=== PATIENT | female | born 1955 | race Caucasian/White ===

== ENCOUNTER 2017-02-12 08:57 | Emergency (ER) | payer OTHER ==
[~2017-02-12] VITALS: Ht 162.6 cm; Wt 80.0 kg
[~2017-02-12 08:57] MED LIST: GABA100C; LISI2.5T89; PHEN-434; SERT25TA; SITA1TAB8
[2017-02-12 09:36] LABS: BASOPHILS % 0.9 % (0.0-2.0); EOSINOPHILS % 1.9 % (0.0-5.0); HEMATOCRIT. 37.9 % (36.0-48.0); HEMOGLOBIN. 12.9 g/dL (12.0-16.0); MEAN CORPUSCULAR HEMOGLOBIN 30.3 pg (28.0-32.0); MEAN CORPUSCULAR VOLUME 88.8 fL (81.0-99.0); MEAN PLATELET VOLUME 7.3 fl (7.4-10.4); MONOCYTES % 9.9 % (2.0-8.0); NEUTROPHILS % 59.3 % (40.0-76.0); PLATELET 284 x1000/uL (130-400); RED BLOOD CELL COUNT 4.27 mill/uL (4.2-5.4); RED CELL DISTRIBUTION WIDTH 13.5 % (11.6-14.6)
[2017-02-12 09:47] LABS: CARBON DIOXIDE 27 mEq/L (21-32); CHLORIDE 101 mEq/L (98-107); ETHANOL BLOOD < 10 mg/dL
[2017-02-12 09:51] LABS: PHENYTOIN 3.6 ug/mL (10-20); TROPONIN I < 0.02 ng/mL (0.00-0.04)
[2017-02-12 10:12] LABS: CLARITY URINE CLEAR (CLEAR); COLOR URINE YELLOW (YELLOW); GLUCOSE URINE 3+ (NEGATIVE); KETONES URINE NEGATIVE (NEGATIVE); LEUKOCYTE ESTERASE URINE NEGATIVE (NEGATIVE); NITRITE URINE NEGATIVE (NEGATIVE); OCCULT BLOOD URINE TRACE (NEGATIVE); PROTEIN URINE 2+ (NEGATIVE); SPECIFIC GRAVITY URINE 1.018 (1.005-1.030); UROBILINOGEN URINE 0.2 E.U./dL (0.2-1.0)
[2017-02-12 10:57] LABS: *AMPHETAMINES SCREEN URINE NEGATIVE (NEGATIVE); *BARBITURATES SCREEN URINE NEGATIVE (NEGATIVE); *BENZODIAZEPINES SCREEN URINE NEGATIVE (NEGATIVE); *COCAINE SCREEN URINE NEGATIVE (NEGATIVE); CANNABINOID URINE SCREEN NEGATIVE (NEGATIVE); METHADONE URINE SCREEN NEGATIVE (NEGATIVE); OPIATES URINE SCREEN NEGATIVE (NEGATIVE); PHENCYCLIDINE URINE SCREEN NEGATIVE (NEGATIVE)
[2017-02-12] MEDS ORDERED: LORAZEPAM 2MG/ML CPJ ONE (11:05)
[2017-02-12] MEDS ORDERED: LORAZEPAM 2MG/ML CPJ IV ONE (11:15)
[2017-02-12] MEDS ORDERED: PHENYTOIN SODIUM 1,000 MG in SODIUM CHLORIDE 0.9% 100 ML IV ONE (11:15)
[2017-02-12 18:24] VITALS: BP 115/71
== END 2017-02-12 18:29 | disposition home or self-care (01) ==
LOC: ER 09:06
DX: R56.9 Unspecified convulsions (principal); J98.11 Atelectasis; E11.9 Type 2 diabetes mellitus without complications; I10 Essential (primary) hypertension; Z88.6 Allergy status to analgesic agent
CPT/HCPCS: 36415; 71010; 80053; 80185; 80305; 81001; 82962; 83880; 84484; 85025; 96365; 96375; 99285; G0482; J1165; J2060; Z7610; J7050

== ENCOUNTER 2017-02-13 16:54 | Emergency (ER) | payer OTHER ==
[~2017-02-13] VITALS: Ht 167.6 cm; Wt 73.0 kg
[2017-02-13 17:02] VITALS: BP 111/68
== END 2017-02-14 08:49 | disposition left against medical advice (07) ==
LOC: ER 16:54
DX: R44.2 Other hallucinations (principal); Z53.21 Procedure and treatment not carried out due to patient leaving prior to being seen by health care provider

== ENCOUNTER 2018-01-09 22:00 | Inpatient (IN) | payer OTHER ==
[~2018-01-09] VITALS: Ht 152.4 cm; Wt 78.0 kg
[~2018-01-09 22:00] MED LIST changes: -GABA100C; +GABA100C PO
[2018-01-09] MEDS ORDERED: SODIUM CHLORIDE 0.9% 1,000 ML IV ONE (22:46)
[2018-01-09 23:30] LABS: BASOPHILS % 1.1 % (0.0-2.0); EOSINOPHILS % 1.5 % (0.0-5.0); HEMATOCRIT. 36.6 % (36.0-48.0); HEMOGLOBIN. 12.4 g/dL (12.0-16.0); LYMPHOCYTES % 46.3 % (20.0-50.0); MEAN CORPUSCULAR HEMOGLOBIN 31.6 pg (28.0-32.0); MEAN CORPUSCULAR VOLUME 92.9 fL (81.0-99.0); MEAN PLATELET VOLUME 7.5 fl (7.4-10.4); NEUTROPHILS % 38.1 % (40.0-76.0); PLATELET 242 x1000/uL (130-400); RED BLOOD CELL COUNT 3.94 mill/uL (4.2-5.4); RED CELL DISTRIBUTION WIDTH 13.2 % (11.6-14.6)
[2018-01-09 23:32] LABS: CLARITY URINE CLEAR (CLEAR); COLOR URINE YELLOW (YELLOW); KETONES URINE NEGATIVE (NEGATIVE); LEUKOCYTE ESTERASE URINE NEGATIVE (NEGATIVE); NITRITE URINE NEGATIVE (NEGATIVE); OCCULT BLOOD URINE NEGATIVE (NEGATIVE); PROTEIN URINE 2+ (NEGATIVE); SPECIFIC GRAVITY URINE 1.017 (1.005-1.030); UROBILINOGEN URINE 0.2 E.U./dL (0.2-1.0)
[2018-01-09 23:35] LABS: CHLORIDE 108 mEq/L (98-107)
[2018-01-09 23:36] LABS: INR 0.9; PROTHROMBIN TIME 9.7 sec (9.4-11.6)
[2018-01-09 23:42] LABS: ETHANOL BLOOD < 10 mg/dL
[2018-01-10] VITALS (7 sets, daily range): BP systolic 94–172; BP diastolic 42–89
[2018-01-10 01:22] LABS: *AMPHETAMINES SCREEN URINE NEGATIVE (NEGATIVE); CANNABINOID URINE SCREEN NEGATIVE (NEGATIVE); METHADONE URINE SCREEN NEGATIVE (NEGATIVE); OPIATES URINE SCREEN NEGATIVE (NEGATIVE); PHENCYCLIDINE URINE SCREEN NEGATIVE (NEGATIVE)
[2018-01-10 01:23] LABS: *BARBITURATES SCREEN URINE NEGATIVE (NEGATIVE); *BENZODIAZEPINES SCREEN URINE NEGATIVE (NEGATIVE); *COCAINE SCREEN URINE NEGATIVE (NEGATIVE)
[2018-01-10] MEDS ORDERED: LISI-604 PO (03:59)
[2018-01-10] MEDS ORDERED: METF10004 PO (04:02)
[2018-01-10] MEDS ORDERED: NON FORMULARY PATIENT HOME MED EA XX SCH (04:45)
[2018-01-10] MEDS ORDERED: DEXTROSE 50% WATER 50ML SYRINGE IV PRN (04:45)
[2018-01-10] MEDS: BLOOD SUGAR DIAGNOSTIC STRIP TEST SCH ×4 (05:59→21:25)
[2018-01-10 06:54] LABS: BASOPHILS % 0.7 % (0.0-2.0); EOSINOPHILS % 1.9 % (0.0-5.0); HEMATOCRIT. 34.4 % (36.0-48.0); HEMOGLOBIN. 11.7 g/dL (12.0-16.0); LYMPHOCYTES % 42.4 % (20.0-50.0); MEAN CORPUSCULAR HEMOGLOBIN 31.9 pg (28.0-32.0); MEAN CORPUSCULAR VOLUME 93.4 fL (81.0-99.0); MEAN PLATELET VOLUME 7.6 fl (7.4-10.4); PLATELET 235 x1000/uL (130-400); RED BLOOD CELL COUNT 3.68 mill/uL (4.2-5.4); RED CELL DISTRIBUTION WIDTH 13.2 % (11.6-14.6)
[2018-01-10 07:34] LABS: CHLORIDE 109 mEq/L (98-107)
[2018-01-10 07:43] LABS: LDL CHOLESTEROL 95 mg/dL (5-100)
[2018-01-10 07:45] LABS: HDL CHOLESTEROL 55 mg/dL (40-59)
[2018-01-10] MEDS ORDERED: MEDICATION NOT ON FORMULARY EA (Lisinopril 20 MG) PO SCH (09:00)
[2018-01-10] MEDS ORDERED: ENOXAPARIN 40MG/0.4ML SYR SUBCUT SCH (09:00)
[2018-01-10] MEDS ORDERED: CLONIDINE 0.1MG TABLET PO PRN (09:30)
[2018-01-10] MEDS: METFORMIN HCL 500MG TABLET PO SCH ×2 (09:38→17:59)
[2018-01-10] MEDS: GABAPENTIN 100MG CAPSULE PO SCH ×2 (09:39→17:59)
[2018-01-10] MEDS: LISINOPRIL 20MG TABLET PO SCH ×2 (09:39→21:00)
[2018-01-10] MEDS: INSULIN LISPRO 100 UNITS/ML SUBCUT SCH ×4 (09:40→21:25)
[2018-01-10] MEDS: PHENYTOIN SODIUM EXTENDED 100MG CAPSULE PO SCH (21:17)
[2018-01-10] MEDS: INSULIN GLARGINE UD 100 UNITS/ML SYR SUBCUT SCH (21:25)
[2018-01-10] MEDS: ENOXAPARIN 30MG/0.3ML SYR SUBCUT SCH (21:28)
[2018-01-11] VITALS: BP 104/50
[2018-01-11 04:00] VITALS: BP 126/70
[2018-01-11] MEDS: BLOOD SUGAR DIAGNOSTIC STRIP TEST SCH ×4 (06:04→21:00)
[2018-01-11 07:32] VITALS: BP_SYST 107; BP_SYST 111; BP_SYST 121; BP_DIAS 43; BP_DIAS 49; BP_DIAS 56
[2018-01-11] MEDS: METFORMIN HCL 500MG TABLET PO SCH ×2 (08:25→17:56)
[2018-01-11] MEDS: INSULIN LISPRO 100 UNITS/ML SUBCUT SCH ×4 (08:25→22:43)
[2018-01-11] MEDS: ENOXAPARIN 30MG/0.3ML SYR SUBCUT SCH ×2 (08:26→22:47)
[2018-01-11] MEDS: GABAPENTIN 100MG CAPSULE PO SCH ×2 (08:26→17:56)
[2018-01-11] MEDS: LISINOPRIL 20MG TABLET PO SCH (08:26)
[2018-01-11] MEDS: INSULIN GLARGINE UD 100 UNITS/ML SYR SUBCUT SCH ×2 (10:15→22:44)
[2018-01-11 12:11] VITALS: BP_SYST 114; BP_SYST 125; BP_SYST 131; BP_DIAS 58; BP_DIAS 67
[2018-01-11] MEDS ORDERED: PHENYTOIN SODIUM 800 MG in SODIUM CHLORIDE 0.9% 100 ML IV SCH (13:00)
[2018-01-11 15:37] VITALS: BP 127/63
[2018-01-11 20:00] VITALS: BP_SYST 106; BP_SYST 94; BP_SYST 96; BP_DIAS 48; BP_DIAS 50; BP_DIAS 56
[2018-01-11] MEDS: PHENYTOIN SODIUM EXTENDED 100MG CAPSULE PO SCH (22:42)
[2018-01-12] VITALS: BP 98/52
[2018-01-12] MEDS ORDERED: DIPHENHYDRAMINE 50MG/ML VIAL IV PRN (02:30)
[2018-01-12 04:00] VITALS: BP 94/50
[2018-01-12 06:35] LABS: BASOPHILS % 0.6 % (0.0-2.0); EOSINOPHILS % 1.5 % (0.0-5.0); HEMATOCRIT. 38.5 % (36.0-48.0); MEAN CORPUSCULAR HEMOGLOBIN 31.4 pg (28.0-32.0); MEAN CORPUSCULAR VOLUME 92.8 fL (81.0-99.0); MEAN PLATELET VOLUME 7.8 fl (7.4-10.4); NEUTROPHILS % 53.9 % (40.0-76.0); PLATELET 240 x1000/uL (130-400); RED BLOOD CELL COUNT 4.14 mill/uL (4.2-5.4); RED CELL DISTRIBUTION WIDTH 13.2 % (11.6-14.6)
[2018-01-12] MEDS: BLOOD SUGAR DIAGNOSTIC STRIP TEST SCH (07:29)
[2018-01-12] MEDS: INSULIN LISPRO 100 UNITS/ML SUBCUT SCH (07:30)
[2018-01-12 07:31] LABS: CHLORIDE 106 mEq/L (98-107)
[2018-01-12 07:40] LABS: PHOSPHORUS 3.3 mg/dL (2.5-4.9)
[2018-01-12 07:42] VITALS: BP_SYST 114; BP_SYST 118; BP_SYST 122; BP_DIAS 48; BP_DIAS 56; BP_DIAS 63
[2018-01-12] MEDS: METFORMIN HCL 500MG TABLET PO SCH (08:21)
[2018-01-12] MEDS: GABAPENTIN 100MG CAPSULE PO SCH (08:21)
[2018-01-12] MEDS: ENOXAPARIN 30MG/0.3ML SYR SUBCUT SCH (08:21)
[2018-01-12] MEDS ORDERED: LISINOPRIL 20MG TABLET PO SCH (09:00)
[2018-01-12] MEDS: INSULIN GLARGINE UD 100 UNITS/ML SYR SUBCUT SCH (10:58)
[2018-01-12 11:54] VITALS: BP 126/60
[2018-01-12 12:07] VITALS: BP 126/60
[2018-01-13] MEDS ORDERED: ENOXAPARIN 40MG/0.4ML SYR SUBCUT SCH (09:00)
== END 2018-01-12 14:00 | disposition home or self-care (01) | DRG 48 ==
LOC: ER 22:00 → ENRESERV 01-10 01:25 → 7WST 01-10 03:24
PROVIDERS: ADMIT Internal Medicine; ATTEND Internal Medicine
DX: G90.8 Other disorders of autonomic nervous system (principal); E87.8 Other disorders of electrolyte and fluid balance, not elsewhere classified; I10 Essential (primary) hypertension; R26.9 Unspecified abnormalities of gait and mobility; E11.9 Type 2 diabetes mellitus without complications; G40.909 Epilepsy, unspecified, not intractable, without status epilepticus; Z88.8 Allergy status to other drugs, medicaments and biological substances; Z79.899 Other long term (current) drug therapy
CPT/HCPCS: 36415; 70450; 70544; 70553; 71045; 74176; 80048; 80053; 80061; 80185; 80305; 81003; 82962; 83036; 83605; 83690; 83735; 83880; 84100; 84443; 84484; 85025; 85610; 87040; 87086; 93005; 93306; 93880; 96360; 96372; 97162; 99285; G0482; J1165; J1200; J1650; J1815; J7030; J7050

== ENCOUNTER 2018-05-22 18:07 | Emergency (ER) | payer OTHER ==
[~2018-05-22] VITALS: Ht 157.5 cm; Wt 72.0 kg
[~2018-05-22 18:07] MED LIST changes: +LISI-604 PO; -LISI2.5T89; +METF-416 PO
[2018-05-22 19:51] LABS: CHLORIDE 104 mEq/L (98-107)
[2018-05-22 19:53] LABS: INR 1.1; PROTHROMBIN TIME 10.9 sec (9.1-11.1)
[2018-05-22 21:24] LABS: BASOPHILS % 0.5 % (0.0-2.0); EOSINOPHILS % 1.4 % (0.0-5.0); HEMATOCRIT. 23.1 % (36.0-48.0); LYMPHOCYTES % 25.3 % (20.0-50.0); MEAN CORPUSCULAR HEMOGLOBIN 31.8 pg (28.0-32.0); MEAN CORPUSCULAR VOLUME 91.6 fL (81.0-99.0); MONOCYTES % 7.4 % (2.0-8.0); NEUTROPHILS % 65.4 % (40.0-76.0); PLATELET 319 x1000/uL (130-400); RED BLOOD CELL COUNT 2.52 mill/uL (4.2-5.4); RED CELL DISTRIBUTION WIDTH 13.6 % (11.6-14.6)
[2018-05-22 22:15] LABS: CLARITY URINE CLOUDY (CLEAR); COLOR URINE DARK YELLOW (YELLOW); KETONES URINE TRACE (NEGATIVE); LEUKOCYTE ESTERASE URINE TRACE (NEGATIVE); NITRITE URINE POSITIVE (NEGATIVE); OCCULT BLOOD URINE TRACE (NEGATIVE); PH URINE 5.5 (4.5-8.0); PROTEIN URINE 2+ (NEGATIVE); SPECIFIC GRAVITY URINE 1.028 (1.005-1.030)
[2018-05-22 22:26] VITALS: BP 133/63
== END 2018-05-22 22:27 | disposition home or self-care (01) ==
LOC: ER 18:07
DX: J18.9 Pneumonia, unspecified organism (principal); N39.0 Urinary tract infection, site not specified; R53.1 Weakness; R53.83 Other fatigue; D64.9 Anemia, unspecified; E88.09 Other disorders of plasma-protein metabolism, not elsewhere classified; R94.8 Abnormal results of function studies of other organs and systems; E11.9 Type 2 diabetes mellitus without complications; I10 Essential (primary) hypertension; R56.9 Unspecified convulsions; Z88.5 Allergy status to narcotic agent
CPT/HCPCS: 36415; 71045; 82962; 83880; 84484; 93005; 99284